=== PATIENT | female | born 1940 | race Caucasian/White ===

== ENCOUNTER 2017-01-29 09:35 | Day surgery (SDC) | payer MEDICARE, BC ==
--- OUTSIDE RECORDS SUMMARY | 2017-01-29 09:39 | XMS REPORT | Continuity of Care Document ---
:1940 Author Organization [facility] ([facility]) Address [address] [place] [address] Phone [phone] Care Team Providers Name Role Phone Daiana Robles Primary Care Provider [phone] Source Comments This disclosure is being made pursuant to the Care Everywhere program, applicable federal and state laws, and may not contain all informaitonavailable regarding this patient.[facility] ([facility]) Active Allergies and Adverse Reactions No Known Allergies Current Medications Prescription Sig. Disp. Refills Start Date End Date Status amitriptyline 50 mg 1 tablet daily 09/12/2015 Active tablet chlorthalidone 25 mg 1 tablet daily 07/18/2015 Active tablet donepezil 10 mg 1 tablet daily 08/02/2015 Active tablet DULoxetine 60 mg XR 1 capsule daily 08/31/2015 Active capsule gabapentin 600 mg 1 tablet daily 10/12/2015 Active tablet LANTUS 100 unit/mL 09/20/2015 Active injection vial levothyroxine 75 mcg 1 tablet daily 08/22/2015 Active tablet losartan 100 mg 1 tablet daily 08/30/2015 Active tablet simvastatin 20 mg 1 tablet daily 07/18/2015 Active tablet spironolactone 25 mg 1 tablet daily 08/05/2015 Active tablet GLUCOSAMINE SULFATE Take 1 tablet by Active (GLUCOSAMINE PO) mouth daily DOCOSAHEXANOIC Take 1 tablet by Active ACID/EPA (FISH OIL mouth daily PO) cholecalciferol Take 2,000 Units by Active (VITAMIN D3) 2,000 mouth daily. unit capsule aspirin 81 mg EC Take 81 mg by mouth Active tablet daily. diltiazem 240 mg ER Take 240 mg by Active capsule mouth daily. insulin aspart Inject Active (NovoLOG FLEXPEN) 100 subcutaneously 3 unit/mL (3 mL) times daily before injection pen meals. metFORMIN 500 mg XR Take 2 tablets 120 tablet 11 11/18/2015 Active tablet (1,000 mg total) by mouth 2 times daily with meals. Active Problems Problem Noted Date Type 2 diabetes mellitus with hyperglycemia 11/18/2015 Social History Tobacco Use Types Packs/Day Years Used Date Never Smoker Smokeless Tobacco: Never Used Alcohol Use Drinks/Week oz/Week Comments No Last Filed Vital Signs Vital Sign Reading Time Taken Blood Pressure 162/86 11/18/2015 12:54 PM PATIENT SERVICE REP Pulse 70 11/18/2015 12:54 PM PATIENT SERVICE REP Temperature - - Respiratory Rate - - Height 1.53 m (5' 0.24") 10/13/2015 9:50 AM PATIENT SERVICE REP Weight 85.7 kg (188 lb 15 oz) 11/18/2015 12:54 PM PATIENT SERVICE REP Body Mass Index 36.61 11/18/2015 12:54 PM PATIENT SERVICE REP Oxygen Saturation - - Plan of Care Health Maintenance Due Date Last Done Comments Hepatitis B Vaccine (1 of 3 - Primary 1940 Series) Tdap Vaccine 1950 DIABETIC: Cholesterol 1957 Diabetic: Hdl 1957 Diabetic: Ldl 1957 DIABETIC: Triglycerides 1957 Td Vaccine 1957 Mammogram 1979 Colonoscopy 10/15/1989 Zoster Vaccine 1999 Osteoporosis Screening (DXA Bone 2004 Density) Pneumococcal Vaccine (1 of 2 - PCV13) 2004 DIABETIC: Retinal Eye Exam 10/13/2015 DIABETIC: Hemoglobin A1C 05/18/2016 11/18/2015, 08/03/2015 Influenza Vaccine: Seasonal (#1) 06/04/2016 DIABETIC: Microalbumin 08/05/2016 08/05/2015 (Previously completed), 02/23/1998 DIABETIC: Foot Exam 11/18/2016 11/18/2015 Results from Last 3 Months Not on file
--- NOTE | 2017-01-29 11:06 | OR ---
Anesthesia Pre Procedure Eval Date of Service: 01/29/17 Pre Procedure Evaluation: Last Vital Signs Temp 36.1 C L 01/29/17 09:51 Pulse 72 01/29/17 09:51 Resp 16 01/29/17 09:51 BP 159/79 01/29/17 09:51 Pulse Ox 98 01/29/17 09:51 Anesthesia Pre Procedure Evaluation DATE: 01/29/2017. TIME: 1100. INDICATIONS: Low back pain. PAST MEDICAL HISTORY: Is a 76-year-old female with a history of low back pain. This is her first epidural steroid injection. EXAM: MRI report and films were reviewed. Pain is 2/10 on pain scale at present. ASSESSMENT OF MEDICAL STATUS: O.K. to proceed with KONRAD. PLANNED PROCEDURE: Fluoroscopic guided epidural steroid injection L3-4. Home Medications: HOME MEDICATIONS Amitriptyline HCl [Elavil] 50 mg PO HS 09/19/16 [Last Taken Unknown] Cholecalciferol (Vitamin D3) [Vitamin D3] 2,000 unit PO DAILY 09/19/16 [Last Taken Unknown] Donepezil HCl [Aricept] 10 mg PO HS 09/19/16 [Last Taken Unknown] Gabapentin [Neurontin] 600 mg PO HS 09/19/16 [Last Taken Unknown] Insulin Aspart [Novolog Flexpen] 10 unit SQ TID 09/19/16 [Last Taken Unknown] Insulin Glargine,Hum.rec.anlog [Lantus] 20 units SC HS 09/19/16 [Last Taken Unknown] Losartan Potassium [Cozaar] 100 mg PO DAILY 09/19/16 [Last Taken Unknown] [place]-3/Dha/Epa/Fish Oil [Fish Oil] 500 mg PO DAILY 09/19/16 [Last Taken Unknown ] Simvastatin 20 mg PO HS 09/19/16 [Last Taken Unknown] Spironolactone [Aldactone] 12.5 mg PO DAILY 09/19/16 [Last Taken Unknown] Acetaminophen [Tylenol] 650 mg PO Q4H PRN 01/28/17 [Last Taken Unknown] Aspirin [Aspirin Chewable] 162 mg PO DAILY 01/28/17 [Last Taken Unknown] Blood-Glucose Meter [Blood Glucose Monitoring] 1 each ACHS 01/28/17 [Last Taken Unknown] Diltiazem HCl [Cardizem LA] 120 mg PO HS 01/28/17 [Last Taken Unknown] Glucosamine/D3/Boswellia Carlene [Osteo Bi-Flex Tablet] 1 each PO HS 01/28/17 [ Last Taken Unknown] Insulin Glargine,Hum.rec.anlog [Lantus] 30 units SC QAM 01/28/17 [Last Taken Unknown] Levothyroxine Sodium [Synthroid] 75 mcg PO DAILY 01/28/17 [Last Taken Unknown] oxyCODONE HCL/ACETAMINOPHEN [Percocet 5 MG/325 MG] 1 tab PO BID PRN 01/28/17 [ Last Taken Unknown]
[2017-01-29] MEDS ORDERED: DEXAMETHASONE SOD PHOSPHATE 10 MG/ML VIAL IJ ONE (11:15)
[2017-01-29] MEDS ORDERED: LIDOCAINE HCL/PF 5 ML VIAL IJ ONE (11:15)
[2017-01-29] MEDS ORDERED: IOPAMIDOL 20 ML VIAL IJ ONE (11:15)
--- NOTE | 2017-01-29 11:36 | OR ---
Anesthesia Procedure Note - Anesthesia Procedure Note Date of Service: 01/29/17 Narrative: Vital Signs - Last Taken Temp 36.1 C L 01/29/17 09:51 Pulse 75 01/29/17 11:25 Resp 18 01/29/17 11:25 BP 198/78 01/29/17 11:25 Pulse Ox 98 01/29/17 11:25 O2 Oxygen Delivery Method Room Air 01/29/17 11:33 ANESTHESIA PROCEDURE NOTE Date of Procedure: 01/29/2017. Time of procedure: 1120. Performed by: Shukri Tomas CRNA Supervisor Hardboard: None. Preprocedure diagnosis: Low back pain. Post procedure diagnosis: Same. Procedure: Fluoroscopic guided epidural Steroid Injection L3-4. Indications: This 76-year-old female with history of nonradiating low back pain. This is a first epidural steroid injection. The need for frequent blood sugar monitoring and insulin management for the next 7 days was discussed with the patient and she verbalized understandings of the discussion. Potential risks and benefits of the procedure were discussed with the patient and consent was obtained. Findings: See below. Details of the procedure: The patient was brought back to operating room #2. The patient was then placed in the prone position to comfort. DuraPrep was applied to the patient's back. Patient was then draped in sterile fashion. Lidocaine 1% was infiltrated to the skin and subcutaneous tissues at the level of the L3-4 interspace using fluoroscopic guidance. The epidural space was identified using a 20-gauge Tuohy needle with [id number] technique. 1 mL of Isovue contrast was then injected after negative aspiration for blood and CSF. The epidural space was outlined in the AP and lateral views. Preservative free Decadron 10 mg + 5 mL of 1% preservative-free lidocaine was administered to the epidural space after negative aspiration for blood and CSF. The Tuohy needle was removed intact. A Band-Aid was applied to the patient's back. The patient was then placed in a supine position for 5 minutes before returning to the ambulatory surgical unit. Total fluoroscopy time: 21.3 seconds. Cumulative dose: 11.27 mGy. EBL: Minimal. Fluids: N/A. Specimen: N/A. Post procedure condition: The patient tolerated the procedure well. No complications were noted. No motor weaknesses or paresthesias were noted upon discharge. Thank you for this consultation. Shukri Tomas CRNA
[2017-01-29 12:14] VITALS: BP 164/81
== END 2017-01-29 09:36 | disposition home or self-care (01) ==
LOC: AMB 09:35
PROVIDERS: ATTEND Internal Medicine
PROC: 3E0S3BZ Introduction of Anesthetic Agent into Epidural Space, Percutaneous Approach (ICD-10-PCS; 2017-01-29)
PROC: 3E0S33Z Introduction of Anti-inflammatory into Epidural Space, Percutaneous Approach (ICD-10-PCS; principal; 2017-01-29 10:45)
DX: M54.5 Low back pain (principal); Z68.39 Body mass index [BMI] 39.0-39.9, adult

== ENCOUNTER 2017-02-26 08:16 | Day surgery (SDC) | payer MEDICARE, BC ==
--- OUTSIDE RECORDS SUMMARY | 2017-02-26 08:20 | XMS REPORT | Continuity of Care Document ---
:1940 Author Organization [facility] ([facility]) Address [address] [place] [address] Phone [phone] Care Team Providers Name Role Phone Daiana Robles Primary Care Provider [phone] Source Comments This disclosure is being made pursuant to the Care Everywhere program, applicable federal and state laws, and may not contain all informaitonavailable regarding this patient.[facility] ([facility]) Active Allergies and Adverse Reactions No Known [...] Taken Blood Pressure 162/86 11/18/2015 12:54 PM MANAGER UNIT Pulse 70 11/18/2015 12:54 PM MANAGER UNIT Temperature - - Respiratory Rate - - Height 1.53 m (5' 0.24") 10/13/2015 9:50 AM MANAGER UNIT Weight 85.7 kg (188 lb 15 oz) 11/18/2015 12:54 PM MANAGER UNIT Body Mass Index 36.61 11/18/2015 12:54 PM MANAGER UNIT Oxygen Saturation - - Plan of Care [...]
--- NOTE | 2017-02-26 08:52 | OR ---
Anesthesia Pre Procedure Eval Pre Procedure Evaluation: Last Vital Signs Temp 36.0 C L 02/26/17 08:28 Pulse 74 02/26/17 08:28 Resp 16 02/26/17 08:28 BP 150/81 02/26/17 08:28 Pulse Ox 97 02/26/17 08:28 PRE PROCEDURE EVALUATION:: DATE: 02/26/2017 TIME: 45 INDICATIONS: Nonradicular low back pain. Multilevel DDD. Multilevel bulging disc PAST MEDICAL HISTORY: First epidural injection was approximately 1 month ago. Patient did not receive pain relief from that injection. EXAM: Lungs clear and equal. Heart rate regular. Procedure risks and benefits were explained to and accepted by the patient. ASSESSMENT OF MEDICAL STATUS: No contraindication to epidural injection. PLANNED PROCEDURE : Fluoroscopy guided epidural injection at L3 4 or L4 5. Home Medications: HOME MEDICATIONS Amitriptyline HCl [Elavil] 50 mg PO HS 09/19/16 [Last Taken Unknown] Cholecalciferol (Vitamin D3) [Vitamin D3] 2,000 unit PO DAILY 09/19/16 [Last Taken Unknown] Donepezil HCl [Aricept] 10 mg PO HS 09/19/16 [Last Taken Unknown] Gabapentin [Neurontin] 600 mg PO HS 09/19/16 [Last Taken Unknown] Insulin Aspart [Novolog Flexpen] 10 unit SQ TID 09/19/16 [Last Taken Unknown] Insulin Glargine,Hum.rec.anlog [Lantus] 20 units SC HS 09/19/16 [Last Taken Unknown] Losartan Potassium [Cozaar] 100 mg PO DAILY 09/19/16 [Last Taken Unknown] [place]-3/Dha/Epa/Fish Oil [Fish Oil] 500 mg PO DAILY 09/19/16 [Last Taken Unknown ] Simvastatin 20 mg PO HS 09/19/16 [Last Taken Unknown] Spironolactone [Aldactone] 12.5 mg PO DAILY 09/19/16 [Last Taken Unknown] Acetaminophen [Tylenol] 650 mg PO Q4H PRN 01/28/17 [Last Taken Unknown] Aspirin [Aspirin Chewable] 162 mg PO DAILY 01/28/17 [Last Taken Unknown] Blood-Glucose Meter [Blood Glucose Monitoring] 1 each MC TID 01/28/17 [Last Taken Unknown] Diltiazem HCl [Cardizem LA] 120 mg PO HS 01/28/17 [Last Taken Unknown] Glucosamine/D3/Boswellia Carlene [Osteo Bi-Flex Tablet] 1 each PO HS 01/28/17 [ Last Taken Unknown] Insulin Glargine,Hum.rec.anlog [Lantus] 30 units SC QAM 01/28/17 [Last Taken Unknown] Levothyroxine Sodium [Synthroid] 75 mcg PO DAILY 01/28/17 [Last Taken Unknown] oxyCODONE HCL/ACETAMINOPHEN [Percocet 5 MG/325 MG] 1 tab PO BID PRN 01/28/17 [ Last Taken Unknown]
[2017-02-26] MEDS ORDERED: IOPAMIDOL 20 ML VIAL IJ ONE (09:07)
[2017-02-26] MEDS ORDERED: DEXAMETHASONE SOD PHOSPHATE 10 MG/ML VIAL IJ ONE (09:08)
[2017-02-26] MEDS ORDERED: LIDOCAINE HCL/PF 5 ML VIAL IJ ONE (09:08)
--- NOTE | 2017-02-26 09:15 | OR ---
Anesthesia Procedure Note - Anesthesia Procedure Note Narrative: Vital Signs - Last Taken Temp 36.0 C L 02/26/17 08:28 Pulse 74 02/26/17 08:28 Resp 16 02/26/17 08:28 BP 150/81 02/26/17 08:28 Pulse Ox 97 02/26/17 08:28 02/26/17 09:12 ANESTHESIA PROCEDURE NOTE Date of Procedure: 02/26/2017 Time of procedure: 904. Performed by: Kvng Geiger CRNA Rigging Man: None. Preprocedure diagnosis: Nonradicular low back pain. Multilevel degenerative disc disease. Multilevel bulging disc. Post procedure diagnosis: Same. Procedure: Epidural Steroid Injection at L4 5. Indications: Nonradicular low back pain. Findings: See below. Details of the procedure: The patient was brought back to operating room #4. The patient was then placed in the prone position. Back was prepped with DuraPrep. Patient was then draped in sterile fashion. Lidocaine 1% was infiltrated to the skin and subcutaneous tissues at the level of the L4 5 interspace. The epidural space was identified using a 20-gauge Tuohy needle with [id number] technique and fluoroscopic guidance. A total of 3 mL of Isovue-200 contrast dye was injected in first the lateral and AP positions to confirm needle placement. Dexamethasone 10 mg + 5 mL of 1% preservative- free lidocaine was administered to the epidural space after negative aspiration for blood and CSF. The Tuohy needle was removed intact. A Band-Aid was applied to the patient's back. The patient was then placed in a prone position for 5 minutes before returning to the ambulatory surgical unit. Total fluoroscopy time was 27.9 seconds. Cumulative dose was 16.86 m/gy EBL: Minimal. Fluids: N/A. Specimen: N/A. Post procedure condition: The patient tolerated the procedure well. No complications were noted. Thank you for this consultation. Kvng Geiger CRNA
[2017-02-26 10:09] VITALS: BP 152/57
== END 2017-02-26 08:17 | disposition home or self-care (01) ==
LOC: AMB 08:16
PROVIDERS: ATTEND Internal Medicine
PROC: 3E0S3BZ Introduction of Anesthetic Agent into Epidural Space, Percutaneous Approach (ICD-10-PCS; 2017-02-26)
PROC: 3E0S33Z Introduction of Anti-inflammatory into Epidural Space, Percutaneous Approach (ICD-10-PCS; principal; 2017-02-26 09:15)
DX: M51.36 Other intervertebral disc degeneration, lumbar region (principal); M51.26 Other intervertebral disc displacement, lumbar region; Z68.39 Body mass index [BMI] 39.0-39.9, adult